=== PATIENT | female | born 1960 | race Caucasian/White ===

== ENCOUNTER 2016-08-27 10:36 | Emergency (ER) | payer OTHER ==
[~2016-08-27] VITALS: Ht 157.5 cm; Wt 62.4 kg
[~2016-08-27 10:36] MED LIST: ACET325 PO; AMLO2.5T PO; ENAL20TA81 PO; METH750T2 PO; MOBI15TA PO; MULT-65 PO; POTA75TA2 PO; SERT-132 PO; ZOFR4TAB3 SL
[2016-08-27 10:53] VITALS: BP 174/109; PULSE 69; RESP 16; TEMP 98.3; O2SAT 100
[2016-08-27] MEDS ORDERED: POTA75TA2 (11:09)
[2016-08-27] MEDS ORDERED: VITA400C28 (11:09)
[2016-08-27] MEDS ORDERED: SERT25TA83 PO (11:09)
[2016-08-27] MEDS ORDERED: CIPR500T2 PO (11:09)
[2016-08-27] MEDS ORDERED: ENAL20TA PO (11:09)
[2016-08-27] MEDS ORDERED: AMLO2.5T PO (11:09)
[2016-08-27] MEDS ORDERED: SODIUM CHLOR 0.9% 1000 ML INJ 1,000 ML IV ONE (11:12)
[2016-08-27] MEDS ORDERED: KETOROLAC TROMETHAMINE 30 MG/ML (IVP) VIAL IVP ONE (11:15)
[2016-08-27] MEDS ORDERED: ONDANSETRON HCL 4 MG/2 ML VIAL IVP ONE (11:15)
[2016-08-27] MEDS ORDERED: SODIUM CHLORIDE 0.9% FLUSH 10 ML FLUSH IVF PRN (11:15)
--- NOTE | 2016-08-27 11:15 | PD ---
HPI Chief Complaint: Flank/Kidney Pain Time Seen by Provider: 11:05 Travel History International Travel<30 days: No Contact w/Intl Traveler<30days: No Traveled to known affect area: No History of Present Illness HPI 55-year-old female presents with right sided back pain that has been present for the past couple weeks intermittently. She went to her primary care physician that did blood work and urine that showed crystals. She states whenever her pain arose again on Saturday they placed her on ciprofloxacin when she called then. She denies other concurrent complaints. She denies any trauma. Quality pain is sharp. Severity is moderate. She states that the antibiotic is not helping. She states that the pain has moved around some between the right and left side but has never been midline. PFSH Past Medical History Arthritis: Yes (Thoracic disk disease) Depression: Yes Cancer: No Cardiovascular Problems: Yes Diabetes: No Diminished Hearing: No Glaucoma: No Hepatitis: No Hiatal Hernia: No Hypertension: Yes Kidney Stones: Yes Medical other: Yes (ARTHRITIS) Immunizations Current: Yes Thyroid Disease: No Tetanus Vaccination: Unknown Influenza Vaccination: No PNEUMOCCOCAL Vaccine (Year): 2 ?: Not Menopausal: No Tubal Ligation: Yes Past Surgical History Abdominal Surgery: No Cardiac Surgery: No Ear Surgery: No Endocrine Surgery: No Eye Surgery: No Genitourinary Surgery: No Gynecologic Surgery: Yes (BILATERAL OOPHORECTOMY 2006) Hysterectomy: Yes Joint Replacement: Yes (RIGHT HIP REPLACEMENT X2.) Oral Surgery: No Pacemaker: No Thoracic Surgery: No Other Surgery: Yes Social History Alcohol Use: No Tobacco Use: No Substance Use: No Allergies-Medications (Allergen,Severity, Reaction): Coded Allergies: Penicillin (Verified Allergy, Intermediate, itching, 08/27/16) Reported Meds & Prescriptions Reported Meds & Active Scripts Active Reported Vitamin D (Cholecalciferol) 400 Unit Cap Potassimin (Potassium) 75 Mg Tab Amlodipine (Amlodipine Besylate) 2.5 Mg Tab 2.5 Mg PO BID Enalapril (Enalapril Maleate) 20 Mg Tab 20 Mg PO DAILY Sertraline (Sertraline HCl) 25 Mg Tab 25 Mg PO DAILY Ciprofloxacin (Ciprofloxacin HCl) 500 Mg Tab 500 Mg PO BID Review of Systems Except as stated in HPI: all other systems reviewed are Neg Physical Exam Narrative GENERAL: Well-nourished, well-developed patient. SKIN: Warm and dry. HEAD: Normocephalic and atraumatic. EYES: No injection or drainage. ENT: No nasal drainage noted. NECK: Supple, trachea midline. CARDIOVASCULAR: Regular rate and rhythm RESPIRATORY: No increased effort. No accessory muscle use. GASTROINTESTINAL: Abdomen soft, non-tender, nondistended. EXTREMITIES: No edema. BACK: Nontender without obvious deformity in midline, no CVA tenderness, right lateral mid back pain. NEUROLOGICAL: Awake and alert. Motor and sensory grossly within normal limits. Normal speech. Data Data Last Documented VS Vital Signs Date Time Temp Pulse Resp B/P Pulse Ox O2 Delivery O2 Flow Rate FiO2 08/27/16 10:53 98.3 69 16 174/109 100 Orders Urinalysis - C+S If Indicated (08/27/16 11:06) Basic Metabolic Panel (Bmp) (08/27/16 11:12) Comprehensive Metabolic Panel (08/27/16 11:12) Ct Abd/Pel W/O Iv Contrast (08/27/16 11:12) Ecg Monitoring (08/27/16 11:12) Iv Access Insert/Monitor (08/27/16 11:12) Ketorolac Inj (Toradol Inj) (08/27/16 11:15) Ondansetron Inj (Zofran Inj) (08/27/16 11:15) Sodium Chloride 0.9% Flush (Ns Flush) (08/27/16 11:15) Sodium Chlor 0.9% 1000 Ml Inj (Ns 1000 M (08/27/16 11:12) Complete Blood Count With Diff (08/27/16 12:08) Potassium Chloride Eff (K-Lyte Cl Eff) (08/27/16 12:30) Labs Laboratory Tests Test 08/27/16 11:20 White Blood Count 4.9 TH/MM3 Red Blood Count 4.31 MIL/MM3 Hemoglobin 12.9 GM/DL Hematocrit 39.1 % Mean Corpuscular Volume 90.6 FL Mean Corpuscular Hemoglobin 29.9 PG Mean Corpuscular Hemoglobin 32.9 % Concent Red Cell Distribution Width 13.2 % Platelet Count 238 TH/MM3 Mean Platelet Volume 8.6 FL Neutrophils (%) (Auto) 54.1 % Lymphocytes (%) (Auto) 31.7 % Monocytes (%) (Auto) 10.2 % Eosinophils (%) (Auto) 1.5 % Basophils (%) (Auto) 2.5 % Neutrophils # (Auto) 2.7 TH/MM3 Lymphocytes # (Auto) 1.5 TH/MM3 Monocytes # (Auto) 0.5 TH/MM3 Eosinophils # (Auto) 0.1 TH/MM3 Basophils # (Auto) 0.1 TH/MM3 CBC Comment DIFF FINAL Differential Comment Urine Color YELLOW Urine Turbidity CLEAR Urine pH 7.0 Urine Specific [place] 1.015 Urine Protein NEG mg/dL Urine Glucose (UA) NEG mg/dL Urine Ketones NEG mg/dL Urine Occult Blood NEG Urine Nitrite NEG Urine Bilirubin NEG Urine Leukocyte Esterase NEG Urine WBC 0-2 /hpf Urine Squamous Epithelial 0-2 /hpf Cells Urine Mucus FEW /lpf Microscopic Urinalysis Comment CULT NOT INDICATED Sodium Level 147 MEQ/L Potassium Level 2.9 MEQ/L Chloride Level 108 MEQ/L Carbon Dioxide Level 28.8 MEQ/L Anion Gap 10 MEQ/L Blood Urea Nitrogen 12 MG/DL Creatinine 0.67 MG/DL Estimat Glomerular Filtration 91 ML/MIN Rate Random Glucose 86 MG/DL Calcium Level 8.6 MG/DL Total Bilirubin 0.5 MG/DL Aspartate Amino Transf 16 U/L (AST/SGOT) Alanine Aminotransferase 19 U/L (ALT/SGPT) Alkaline Phosphatase 68 U/L Total Protein 7.4 GM/DL Albumin 3.7 GM/DL [facility] Medical Decision Making Medical Screen Exam Complete: Yes Emergency Medical Condition: Yes Medical Record Reviewed: Yes (past history confirmed) Interpretation(s) CBC & BMP Diagram 08/27/16 11:20 Differential Diagnosis Kidney stone, UTI, musculoskeletal Narrative Course Will check blood work, urinalysis, CT scan abdominal pelvis and dose with IV fluids, Toradol, Zofran and reevaluate CT without emergent process, patient of critical hypokalemia 2.9. We'll provide with 50 mEq here Patient denies any new complaints and states that they are feeling better. Patient happy with care, all questions answered. Patient knows that follow up is incumbent on them and to return to the emergency room immediately if new or worsening symptoms develop. Patient given strict return precautions, vitals reviewed and are normal, agrees to further workup as an outpatient. Notes history of hypokalemia and non-replacement. She will continue potassium replacement at home in addition to the medication given here and will have this rechecked through her primary Diagnosis Primary Impression: Back pain Qualified Code: M54.5 - Acute bilateral low back pain without sciatica Additional Impression: Hypokalemia Patient Instructions: General Instructions Additional Instructions: tylenol and motrin with food as needed, follow with primary this week for recheck, return as needed Med/Other Pt SpecificInfo: No Change to Meds Disposition: 01 DISCHARGE HOME Condition: Stable Estefani Cortes MD August 27, 2016 11:15
--- NOTE | 2016-08-27 12:01 | RADHPO ---
EXAM DATE/TIME: 08/27/2016 11:20 [facility] COMPARISON: No previous studies available for comparison. INDICATIONS : Right flank pain. ORAL CONTRAST: No oral contrast ingested. RADIATION DOSE: 8.78 CTDIvol (mGy) MEDICAL HISTORY : Hypertension. Renal calculi. SURGICAL HISTORY : Hysterectomy. Tubal ligation.Orthopedic surgery. ENCOUNTER: Initial ACUITY: 1 day PAIN SCALE: 10/10 LOCATION: Right flank TECHNIQUE: Volumetric scanning of the abdomen and pelvis was performed. Using automated exposure control and ad justment of the mA and/or kV according to patient size, radiation dose was kept as low as reasonably achievable to obtain optimal diagnostic quality images. FINDINGS: LOWER LUNGS: The visualized lower lungs are clear. LIVER: There is a tiny low density in the central liver which is likely a cyst. No evidence of biliary ducta l dilatation. SPLEEN: Normal size without lesion. PANCREAS: Within normal limits. KIDNEYS: Normal in size and shape. There is no mass, stone, or hydronephrosis. ADRENAL GLANDS: There is a 15 mm circumscribed low density mass involving the left adrenal gland consistent with lan tara. VASCULAR: There is no aortic aneurysm. BOWEL/MESENTERY: The stomach, small bowel, and colon demonstrate no acute abnormality. There is no free intraperitone al air or fluid. ABDOMINAL WALL: Within normal limits. RETROPERITONEUM: There is no lymphadenopathy. BLADDER: No wall thickening or mass. REPRODUCTIVE: Uterus is surgically absent. No evidence of pelvic mass or free fluid. INGUINAL: There is no lymphadenopathy or hernia. MUSCULOSKELETAL: Degenerative changes present in the spine. Previous right total hip arthroplasty. CONCLUSION: Liver cyst and left adrenal adenoma. No evidence of kidney stone or hydronephrosis. Vini Guerra MD on August 27, 2016 at 11:40 Board Certified Radiologist. This report was verified electronically.
[2016-08-27 12:09] LABS: BLOOD, URINE NEG (NEG); GLUCOSE,URINE NEG (NEG); KETONE, URINE NEG (NEG); NITRITE,URINE NEG (NEG)
[2016-08-27 12:13] LABS: AUTOMATED NEUTROPHIL # 2.7 TH/MM3 (1.8-7.7); BASOPHIL # 0.1 TH/MM3 (0-0.2); BASOPHIL % 2.5 % (0.0-2.0); EOSINOPHIL # 0.1 TH/MM3 (0-0.4); EOSINOPHIL % 1.5 % (0.0-4.0); HEMATOCRIT 39.1 % (35.0-46.0); HEMO FLAGS DIFF FINAL; LYMPH % 31.7 % (9.0-44.0); LYMPHOCYTE # 1.5 TH/MM3 (1.0-4.8); MEAN CELL VOLUME 90.6 FL (80.0-100.0); MEAN CORPUSCULAR HEMOGLOBIN 29.9 PG (27.0-34.0); MEAN CORPUSCULAR HGB CONC 32.9 % (32.0-36.0); MONO % 10.2 % (0.0-8.0); NEUT % 54.1 % (16.0-70.0); PLATELET COUNT 238 TH/MM3 (150-450); RED BLOOD COUNT 4.31 MIL/MM3 (4.00-5.30); RED CELL DISTRIBUTION WIDTH 13.2 % (11.6-17.2); WHITE BLOOD COUNT 4.9 TH/MM3 (4.0-11.0)
[2016-08-27 12:16] LABS: ALKALINE PHOSPHATASE 68 U/L (45-117); ALT (GPT) 19 U/L (10-53); ANION GAP 10 MEQ/L (5-15); AST (GOT) 16 U/L (15-37); BICARBONATE 28.8 MEQ/L (21.0-32.0); BLOOD UREA NITROGEN 12 MG/DL (7-18); CHLORIDE 108 MEQ/L (98-107); GLOMERULAR FILTRATION RATE 91 ML/MIN (>89); SODIUM (NA) 147 MEQ/L (136-145); TOTAL BILIRUBIN ADULT 0.5 MG/DL (0.2-1.0)
[2016-08-27 12:17] LABS: POTASSIUM 2.9 MEQ/L (3.5-5.1)
[2016-08-27 12:30] LABS: URINE COLOR YELLOW (YELLW/STRAW)
[2016-08-27] MEDS ORDERED: POTASSIUM CHLORIDE 25 MEQ EFFERVESCENT TAB PO ONE (12:30)
[2016-08-27 12:31] LABS: COMMENT (UR) CULT NOT INDICATED; CULTURE IF INDICATED CULT NOT INDICATED; MUCUS URINE FEW /lpf (OCC); SQUAMOUS EPITHELIAL CELL URINE 0-2 /hpf (0-5); WBC, URINE 0-2 /hpf (0-5)
[2016-08-27 13:00] VITALS: BP 199/98; PULSE 61; RESP 14; O2SAT 98
== END 2016-08-27 13:30 | disposition home or self-care (01) ==
LOC: PHEFT 10:36
DX: M54.5 Low back pain (principal); E87.6 Hypokalemia
CPT/HCPCS: 74176; 80053; 81001; 85025; 96361; 96374; 96375; 99284; J1885; J2405; J7030

== ENCOUNTER 2017-06-08 18:10 | Emergency (ER) | payer OTHER ==
[~2017-06-08] VITALS: Ht 157.5 cm; Wt 61.0 kg
[~2017-06-08 18:10] MED LIST changes: -ACET325 PO; +CIPR500T2 PO; +ENAL20TA PO; -ENAL20TA81 PO; -METH750T2 PO; -MOBI15TA PO; -MULT-65 PO; +POTA75TA2; -POTA75TA2 PO; -SERT-132 PO; +SERT25TA83 PO; +VITA400C28; -ZOFR4TAB3 SL
[2017-06-08 18:22] VITALS: BP 220/115; PULSE 79; RESP 16; TEMP 98.8; O2SAT 96
[2017-06-08] MEDS ORDERED: POTA1TAB4 PO (18:36)
[2017-06-08] MEDS ORDERED: cloNIDine HCL 0.2 MG TAB PO ONE (19:15)
--- NOTE | 2017-06-08 19:27 | PD ---
HPI Chief Complaint: ENT Complaint Time Seen by Provider: 19:12 Travel History International Travel<30 days: No Contact w/Intl Traveler<30days: No Traveled to known affect area: No History of Present Illness HPI 56-year-old female patient with history of hypertension currently on amlodipine , presents to the ER today for several days history of cough, runny nose, and states that she has been using cough drops for this issue, and took her blood pressure this morning and noted that it was high. She states that that happens sometimes when she gets sick. She took her amlodipine an hour before arriving. She denies any chest pains, shortness of breath, fevers, or any other symptoms. She does not know any sick contacts. Modifying Factors: None Associated Signs & Symptoms: Cough, runny nose, elevated blood pressure Risk Factors: Hypertension PFSH Past Medical History Arthritis: Yes (Thoracic disk disease) Depression: Yes Cancer: No Cardiovascular Problems: Yes Diabetes: No Diminished Hearing: No Glaucoma: No Hepatitis: No Hiatal Hernia: No Hypertension: Yes Kidney Stones: Yes Medical other: Yes (ARTHRITIS) Immunizations Current: Yes Thyroid Disease: No Influenza Vaccination: Yes PNEUMOCCOCAL Vaccine (Year): 2 ?: Not Menopausal: No Tubal Ligation: Yes Past Surgical History Abdominal Surgery: No Cardiac Surgery: No Ear Surgery: No Endocrine Surgery: No Eye Surgery: No Genitourinary Surgery: No Gynecologic Surgery: Yes (BILATERAL OOPHORECTOMY 2006) Hysterectomy: Yes Joint Replacement: Yes (RIGHT HIP REPLACEMENT X2.) Oral Surgery: No Pacemaker: No Thoracic Surgery: No Other Surgery: Yes Social History Alcohol Use: No Tobacco Use: No Substance Use: No Allergies-Medications (Allergen,Severity, Reaction): Coded Allergies: penicillin G (Unverified Allergy, Intermediate, itching, 06/08/17) Reported Meds & Prescriptions Reported Meds & Active Scripts Active Reported K-Tab (Potassium Chloride) 20 Meq Tab 20 Meq PO TID Amlodipine (Amlodipine Besylate) 2.5 Mg Tab 20 Mg PO BID Sertraline (Sertraline HCl) 25 Mg Tab 25 Mg PO DAILY Review of Systems Except as stated in HPI: all other systems reviewed are Neg Physical Exam Narrative GENERAL: Well-developed middle age female patient currently in mild distress. Awake and oriented 3. SKIN: Focused skin assessment warm/dry. HEAD: Atraumatic. Normocephalic. EYES: Pupils equal and round. No scleral icterus. No injection or drainage. ENT: No nasal bleeding or discharge. Mucous membranes pink and moist. There is notable pharyngeal erythema without significant exudates, tonsillar pillars are symmetrical. NECK: Trachea midline. No JVD. Supple. CARDIOVASCULAR: Regular rate and rhythm. No murmur appreciated. RESPIRATORY: No accessory muscle use. Clear to auscultation. Breath sounds equal bilaterally. GASTROINTESTINAL: Abdomen soft, non-tender, nondistended. Hepatic and splenic margins not palpable. MUSCULOSKELETAL: No obvious deformities. No clubbing. No cyanosis. No edema. NEUROLOGICAL: Awake and alert. No obvious cranial nerve deficits. Motor grossly within normal limits. Normal speech. PSYCHIATRIC: Appropriate mood and affect; insight and judgment normal. Data Data Last Documented VS Vital Signs Date Time Temp Pulse Resp B/P (MAP) Pulse Ox O2 Delivery O2 Flow Rate FiO2 06/08/17 19:57 98.2 75 18 168/90 (116) 98 Room Air Orders Orders Influenzae A/B Antigen (06/08/17 19:12) Clonidine (Catapres) (06/08/17 19:15) MDM Medical Decision Making Medical Screen Exam Complete: Yes Emergency Medical Condition: Yes Medical Record Reviewed: Yes Differential Diagnosis Chronic hypertension versus hypertensive urgency versus medication noncompliance , URI versus influenza Narrative Course Influenza testing is positive. She was given clonidine in the ER and blood pressure is coming down nicely on reevaluation at 8 PM. At this point, vital signs are stable and she does not have very severe symptoms. She has been having symptoms for over 48 hours now and at this point, I do not believe that Tamiflu would be helpful. My plan would be to release her and have her continue using [id number] symptomatic relief for symptoms. Drink plenty of fluids. Rest. Return for any worsening in symptoms as necessary. Continue taking amlodipine for blood pressure. Follow-up as necessary with primary care doctor. The plan has been discussed with her and she states understanding. Diagnosis Primary Impression: Chronic hypertension Additional Impression: Influenza Disposition: 01 DISCHARGE HOME Condition: Stable Nam Larry MD Jun 08, 2017 19:27
[2017-06-08 19:57] VITALS: BP 168/90; PULSE 75; RESP 18; TEMP 98.2; O2SAT 98
== END 2017-06-08 20:20 | disposition home or self-care (01) ==
LOC: PHED 18:10
DX: I10 Essential (primary) hypertension (principal); J09.X2 Influenza due to identified novel influenza A virus with other respiratory manifestations; F32.9 Major depressive disorder, single episode, unspecified; Z88.0 Allergy status to penicillin
CPT/HCPCS: 87804; 99283